=== PATIENT | female | born 1955 | race Caucasian/White ===

== ENCOUNTER → 2019-04-22 | Day surgery (SDC) | payer MEDICAID ==
[~2019-04-22] MED LIST: Dextrose 5%-Lactated Ringers 1,000 ML IV SCH; Glycopyrrolate 0.2 MG/ML 2 ML SDV IVPUSH ONE; Midazolam 1 MG/ML 2 ML SDV ONE; Ondansetron 4 MG/2 ML SDV ONE; Propofol 200 MG/20 ML SDV ONE; fentaNYL 100 MCG/2 ML SDV ONE
--- NOTE | 2019-04-27 15:43 | OR ---
DATE OF PROCEDURE: 04/22/2019 SURGEON: Alfonso Gay MD PREOPERATIVE DIAGNOSIS: Severe heartburn and aspiration of esophageal contents status post laparoscopic adjustable gastric band placement. POSTOPERATIVE DIAGNOSES: 1. Severe heartburn and aspiration of esophageal contents status post laparoscopic adjustable gastric band placement. 2. Marked dilation of esophagus with severe esophagitis with retained bile and fluid within the esophagus. 3. Mild antral gastritis. OPERATIVE PROCEDURES: Esophagogastroduodenoscopy with antral biopsies for CLOtest. ANESTHESIA: IV sedation. INDICATION FOR PROCEDURE: Status post a laparoscopic adjustable band placement in 2009, but now presenting with severe heartburn as well as aspiration of esophageal contents. The plan is to proceed with upper GI endoscopy for diagnostic purposes. All fluid was removed from the patient's band system. Potential risks of the procedure including bleeding and perforation were discussed, and the patient wishes to proceed. DETAILS OF PROCEDURE: The patient was taken to the operating room and placed in a left lateral decubitus position. IV sedation was administered, after which the upper GI endoscope was passed orally into the esophagus. Large amount of bile and fluid was retained within the esophagus, which was strikingly dilated. This was evacuated at this point. The patient was noted to have quite severe esophagitis diffusely in the lower third of the esophagus. The imprint of the band was quite loose, i.e., there was no mechanical obstruction at that point and no evidence of problems such as band slippage. The remainder of the stomach had some patchy redness in the antrum, and the duodenal segment visualized was unremarkable. Antral biopsies were then obtained for the CLOtest. Minimal bleeding from the biopsy site was seen, and the procedure then concluded. Of note, all the fluid had been removed from the patient's band at that point. The plan will be to contact the patient's insurance carrier regarding removal of band and conversion to a Lakisha-en-Y gastric bypass. Alfonso Gay MD /[id number]
== END ==
LOC: JP.SDS 06:38
PROVIDERS: ATTEND Surgery
DX: K21.0 Gastro-esophageal reflux disease with esophagitis (principal); K22.8 Other specified diseases of esophagus; K29.70 Gastritis, unspecified, without bleeding; J45.909 Unspecified asthma, uncomplicated; E78.5 Hyperlipidemia, unspecified; E66.9 Obesity, unspecified; Z98.84 Bariatric surgery status; Z68.33 Body mass index [BMI] 33.0-33.9, adult
CPT/HCPCS: 43239; 87081; J2250; J2405; J2704; J3010; J3490; J7121